=== PATIENT | female | born 1960 | race African-American/Black ===

== ENCOUNTER 2016-07-01 04:59 | Day surgery (SDC) | payer OTHER ==
[2016-06-26 15:08] VITALS: BMI 23.9
[2016-07-01] MEDS ORDERED: LIDOCAINE HCL 2% (20ML MULTI-DOSE VIAL) NR ONE (09:07)
[2016-07-01] MEDS ORDERED: DESFLURANE GAS 240 ML BOTTLE IH ONE (09:07)
[2016-07-01] MEDS ORDERED: DEXAMETHASONE SOD PHOSPHATE 4 MG/1 ML VIAL ONE (09:22)
[2016-07-01] MEDS ORDERED: ceFAZolin SODIUM 1 GM VIAL ONE (09:22)
[2016-07-01] MEDS ORDERED: PROPOFOL 20 ML ONE (09:22)
[2016-07-01] MEDS ORDERED: KETOROLAC TROMETHAMINE 30 MG/1 ML VIAL ONE (09:22)
[2016-07-01] MEDS ORDERED: SODIUM CHLORIDE 0.9% P/F 10 ML VIAL IJ ONE (09:22)
[2016-07-01] MEDS ORDERED: MIDAZOLAM HCL 2 MG/2 ML SINGLE DOSE VIAL ONE (09:23)
[2016-07-01] MEDS ORDERED: ROCURONIUM BROMIDE 50 MG/5 ML VIAL ONE (09:23)
[2016-07-01] MEDS ORDERED: BUPIVACAINE HCL/PF 0.5% (5MG/ML) 10 ML VIAL ONE (09:25)
[2016-07-01] MEDS ORDERED: IBUPROFEN 800 MG/8 ML IJ IVPB PRN (10:06)
--- NOTE | 2016-07-01 10:06 | HP ---
History & Physical Update - History History: No Change - Physical Physical: No Change - Assessment Assessment: No Change - Plan Plan: No Change
[2016-07-01] MEDS ORDERED: ceFAZolin SODIUM 1 GM VIAL IVPB ONE (10:12)
[2016-07-01] MEDS ORDERED: GLYCOPYRROLATE 0.2 MG/1 ML VIAL ONE (11:45)
[2016-07-01] MEDS ORDERED: NEOSTIGMINE METHYLSULFATE 0.5 MG/ML - 10 ML MDV ONE (11:46)
[2016-07-01] MEDS ORDERED: BUPIVACAINE HCL/PF 0.5% (5MG/ML) 10 ML VIAL IJ ONE (11:55)
[2016-07-01] MEDS ORDERED: ONDANSETRON 4 MG/2 ML VIAL IVPUSH PRN (12:30)
[2016-07-01] MEDS ORDERED: HYDROmorphone HCL CARPU-JECT 2 MG/1 ML DISP.SYRIN ONE (13:11)
[2016-07-01] MEDS: HYDROmorphone HCL CARPU-JECT 1 MG/1 ML DISP.SYRIN IVPUSH PRN ×2 (13:13→14:00)
[2016-07-01] MEDS: LACTATED RINGERS SOLUTION 1,000 ML IV SCH ×2 (14:45→17:46)
[2016-07-01] MEDS ORDERED: CEFAZOLIN 1 GM/D5W 50 ML IVPB SCH (15:00)
--- NOTE | 2016-07-01 15:09 | OP ---
Operative Note - Note: Operative Date: 07/01/16 Pre-Operative Diagnosis: Leiomyomatous Uterus. Intramural myoma. subserosal myoma. abdominal pain Operation: Total Robotic Laparoscopic hysterectomy Findings: LeiomyomatoUS uTERUS 14 cm normal fallopian tube Post-Operative Diagnosis: Same as Pre-op Surgeon: Hillary Benito Physics Technical Officer: Magdalena Sorensen Anesthesia: General Estimated Blood Loss (mls): 20 Operative Report Dictated: Yes
[2016-07-01] MEDS: CEFAZOLIN (PRE-DOCKED) 50 ML IVPB SCH ×2 (15:54→21:00)
[2016-07-01] MEDS: KETOROLAC TROMETHAMINE 10 MG TABLET PO SCH ×2 (17:24→18:30)
[2016-07-01] MEDS: HYDROmorphone HCL CARPU-JECT 1 MG/1 ML DISP.SYRIN IVPB PRN ×2 (17:46→21:37)
[2016-07-01 18:20] LABS: MCH 28.7 pg (25.7-33.7); MEAN PLT VOLUME 7.7 fl (7.5-11.1); PLATELET COUNT 259 K/MM3 (134-434); RDW 14.2 % (11.6-15.6); WHITE BLOOD COUNT 18.2 K/mm3 (4.0-10.0)
--- NOTE | 2016-07-01 20:24 | OP ---
DATE OF OPERATION: 06/30/2016 PREOPERATIVE DIAGNOSES: Leiomyomatous uterus, submucous myoma, and intramural myoma and abdominal pain. OPERATION: Total laparoscopic robotic hysterectomy, and bilateral salpingectomy. POSTOPERATIVE DIAGNOSES: Leiomyomatous uterus, submucous myoma, and intramural myoma and abdominal pain. SURGEON: Danny Nguyen MD NEEDLEWORKER: Magdalena Sorensen MD ANESTHESIA: General. PROCEDURE: The patient was taken to the operating room, placed in dorsal lithotomy position, prepped and draped in the usual sterile fashion. A time-out was performed in accordance with hospital regulation. Speculum was placed in the vagina, anterior lip of the cervix grasped with single-tooth tenaculum. Cervix then dilated to accommodate the uterine VCare manipulator. VCare manipulator was then inserted and cervix was covered. Sheffield catheter was then inserted into the bladder. Attention was then drawn to the umbilicus, where an 8 mm umbilical incision was then made. The Veress needle was inserted into the cavity. Approximately 3 to 4 L of CO2 was insufflated in the cavity. Veress needle was then removed and 8-mm trocar was inserted. Laparoscope and camera was then attached. Visualization revealed a leiomyomatous uterus with multiple myomas, submucous myomas mostly noted. Tubes and ovaries noted to be within normal limits. Two trocar incisions were made on the left side, 1 parallel to the umbilical on the left and then upper left. The 5-mm incision was made and a AirSeal cannula was inserted under direct visualization with laparoscopic camera. On the right side, 2 parallel incisions were made, 1 in the lower aspect closer to the sidewall and one 8 mm away from the umbilical incision. Trocars were then inserted under direct visualization. The da Barrington robot was then side docked to the patient's bedside. Trocars were then inserted onto the robot and placement of instruments was then done. The vessel sealer was placed on the left, tenaculum and Endo Sylwia were placed on the right under direct visualization. Instruments were then inserted. The tenaculum was then used to move the uterus to the right, and round ligaments and uteroovarian ligaments identified, clamped and cut using vessel sealer. The uterine arteries were identified and clamped and cut. Vesicouterine reflection was then entered and the bladder was bluntly dissected out of the operative field. The cardinal ligament identified and clamped and cut using vessel sealer. The uterus was then moved to the left side. In the right side, the same procedure was done. The uteroovarian ligaments identified and clamped and cut. Uterine arteries identified and clamped and cut. Cardinal ligament was identified, clamped and cut. Endo Sylwia were then used to cut the vagina away from the cervix. After the cervix had been cleared from the vagina, the uterus was then removed with the tubes. The tubes were bilaterally clamped and removed using vessel sealer and removed through the vagina. An 0 V-Loc suture was then passed through the vagina. Robot was used with the needle etienne to grasp with the needle and continuous suturing was done with the V-Loc suture on the vagina, vaginal cuff, and oversewn to the midline. Closure of the vaginal cuff was confirmed and ureters identified bilaterally and found to have peristalsis. Hemostasis was achieved. Ovaries were still intact and found to be normal. During the procedure, some enterolysis was performed. On the left side, the bowel was attached to the left ovary and tube, and on the right side, bowel was attached to the uterus, which was removed prior to removal of the uterus. Hemostasis was achieved. Estimated blood loss 20 mL. All instruments were then removed. CO2 was removed from the abdomen. Incisions were then closed using 4-0 Biosyn in subcuticular fashion. The wound was washed and dressed. Patient tolerated procedure well, was taken to recovery room in stable condition. DANNY NGUYEN M.D. [id number]
[2016-07-01] MEDS ORDERED: ONDANSETRON 4 MG/2 ML VIAL IVPB PRN (20:53)
[2016-07-02] MEDS: KETOROLAC TROMETHAMINE 10 MG TABLET PO SCH ×2 (00:07→05:56)
[2016-07-02] MEDS: CEFAZOLIN (PRE-DOCKED) 50 ML IVPB SCH ×2 (02:47→09:41)
[2016-07-02 07:27] LABS: MCH 28.6 pg (25.7-33.7); MCHC 32.5 g/dl (32.0-36.0); MEAN CELL VOLUME 87.9 fl (80-96); MEAN PLT VOLUME 7.8 fl (7.5-11.1); PLATELET COUNT 215 K/MM3 (134-434); RDW 14.4 % (11.6-15.6)
--- NOTE | 2016-07-02 08:45 | PN ---
Progress Note (short form) - Note Progress Note: Post op day#1.S/P Robotic and laproscopic PATRICIA with bilateral salpingectomy under GA uneventful.Patient stable.No any anesthesia related problem.Patient DC from the anesthesia care.
--- NOTE | 2016-07-02 09:35 | PN ---
Progress Note, Physician Chief Complaint: Pt seen/evaluated and doing well. Ambulating, tolerating clears and crackers. No n/v. Passing flatus. Hasn't had regular diet yet but denies n/v. No VB. No CP/SOB/F/C/NUÑEZ or any other complaints. - Current Medication List Current Medications: Active Medications Enoxaparin Sodium (Lovenox -) 40 mg SQ DAILY SANA Fentanyl (Sublimaze Injection -) 50 mcg IVPUSH [id number] PRN PRN Reason: PAIN Stop: 07/04/16 12:31 Last Admin: 07/01/16 12:45 Dose: 50 mcg Hydromorphone HCl (Dilaudid Injection -) 1 mg IVPUSH [id number] PRN PRN Reason: PAIN Stop: 07/04/16 12:31 Last Admin: 07/01/16 14:00 Dose: 1 mg Hydromorphone HCl (Dilaudid Injection -) 1 mg IVPB Q4H PRN PRN Reason: PAIN Stop: 07/02/16 14:59 Last Admin: 07/01/16 21:37 Dose: 1 mg Lactated Ringer's (Lactated Ringers Solution) 1,000 mls @ 125 mls/hr IV ASDIR SANA Last Admin: 07/01/16 17:46 Dose: 125 mls/hr Cefazolin Sodium (Ancef 1gm Ivpb (Pre-Docked)) 50 mls @ 100 mls/hr IVPB Q6H-IV SANA Stop: 07/02/16 15:44 Last Admin: 07/02/16 02:47 Dose: 100 mls/hr Ibuprofen (Caldolor Injection -) 800 mg IVPB Q6H PRN PRN Reason: FEVER Ketorolac Tromethamine (Toradol) 10 mg PO Q6HPO SANA Stop: 07/06/16 11:59 Last Admin: 07/02/16 05:56 Dose: 10 mg Ondansetron HCl (Zofran Injection) 4 mg IVPB Q6H PRN PRN Reason: NAUSEA Stop: 07/02/16 14:54 Last Admin: 07/01/16 21:00 Dose: 4 mg - Objective Vital Signs: Vital Signs Temperature 98.7 F 07/02/16 05:56 Pulse Rate 69 07/02/16 05:56 Respiratory Rate 20 07/02/16 05:56 Blood Pressure 111/55 07/02/16 05:56 O2 Sat by Pulse Oximetry (%) 98 07/01/16 21:00 Constitutional: Yes: Well Nourished, No Distress, Calm Eyes: Yes: Conjunctiva Clear, EOM Intact HENT: Yes: Atraumatic, Normocephalic Neck: Yes: Supple, Trachea Midline Cardiovascular: Yes: Regular Rate and Rhythm Respiratory: Yes: Regular, CTA Bilaterally Gastrointestinal: Yes: Normal Bowel Sounds, Soft Wound/Incision: Yes: Clean/Dry, Well Approximated, Dressing Dry and Intact Neurological: Yes: Alert, Oriented Psychiatric: Yes: Alert, Oriented Labs: CBC, BMP 07/02/16 06:35 Problem List - Problems (1) S/P laparoscopic hysterectomy Code(s): Z90.710 - ACQUIRED ABSENCE OF BOTH CERVIX AND UTERUS Assessment/Plan 55 y/o POD #1 s/p laparoscopic robotic hysterectomy - AFVSS - Hgb 11.7, stable - regular diet - po pain meds -await void - likely discharge home today
--- NOTE | 2016-07-02 09:37 | DS ---
Physical Examination Vital Signs: Vital Signs Temperature 98.7 F 07/02/16 05:56 Pulse Rate 69 07/02/16 05:56 Respiratory Rate 20 07/02/16 05:56 Blood Pressure 111/55 07/02/16 05:56 O2 Sat by Pulse Oximetry (%) 98 07/01/16 21:00 Labs: CBC, BMP 07/02/16 06:35 Discharge Summary Reason For Visit: SUBSEROSAL LEIOMYOMA Current Active Problems S/P laparoscopic hysterectomy (Acute) Procedures: Principal: robotic total laparoscopic hysterecotmy, bilateral salpingectomy Hospital Course: Patient admitted 07/01/16 for robotic hysterectomy for fibroids and underwent uncomplicated procedure. Please see operative report for full details. Patient met all pots op milestones, was voiding, passing flatus and tolerating diet. Pt was discharged home in stable condition on post op day 1. Condition: Good - Instructions Diet, Activity, Other Instructions: Dr. Hillary Benito Bromination Equipment Operator discharge instructions Physical activity Resume your normal everyday activity as tolerated no heavy lifting or exercise until seen by your surgeon. You may walk unlimited wilmar of and climb stairs. You may resume driving the car when you feel safe and comfortable behind the wheel. No sexual activity as instructed by Dr. Benito. Wound care If you have a bandage, leave it on, and keep dry for 48-72 hours. After that time discard the outer bandage. If they are tapes on the skin under the out of bandage leave them in place. They will peel off in the next 7 to 10 days. Do Not Peel them off. You may shower the day after surgery. If there are tapes present on the skin, you may shower over them. Diet There are no dietary restrictions. Eat healthy, high-fiber foods. Drink 6 to 8 glasses of liquid each day. This will assist in keeping your bowels are regular. Pain management You may take Tylenol or acetaminophen or Ibuprofen (for example, Motrin, Advil etc.) from my pain prescription medication is ordered should be taken as prescribed for moderate to severe pain. Call Dr. Benito for any of the following: Severe pain not relieved by medication Fever of 101 or higher Excessive bleeding or drainage on dressing Inability to urinate Call the office at [phone] for an appointment in 14 days. Referrals: Hillary Benito MD [Staff Physician] - 2 Weeks (please call to make appointment) Disposition: HOME - Home Medications Comprehensive Discharge Medication List: Ambulatory Orders Lactobacillus Acidophilus [Probiotic Acidophilus] 1 each PO DAILY 06/26/16 Thyroid [[employer] Thyroid] 15 mg PO DAILY 06/26/16 Ibuprofen [Motrin -] 800 mg PO PRN PRN 07/01/16 Hydromorphone HCl [Dilaudid] 2 mg PO Q4H #30 tablet MDD 6 07/02/16 Ibuprofen [Motrin -] 600 mg PO QID PRN #28 tablet 07/02/16
[2016-07-02] MEDS ORDERED: ENOXAPARIN NA (PORCINE) 40 MG/0.4 ML DISP.SYRIN SQ SCH (10:00)
[2016-07-02 11:38] VITALS: BP 120/68; PULSE 70; TEMP 98.6
--- NOTE | 2016-07-02 13:48 | PATH ---
Surgical Pathology Report Patient Name: RADHA CONTI [facility]. Rec. #: [id number] /Age/Gender: 1960 (Age: 55) / F Account: [id number] Location: AMBULATORY SURG Taken: 07/01/2016 Received: 07/01/2016 Reported: 07/02/2016 Physicians: Hillary Benito M.D. Specimen(s) Received A: UTERUS AND CERVIX B: RIGHT FALLOPIAN TUBE C: LEFT FALLOPIAN TUBE Clinical History Subserosal leiomyoma Final Diagnosis A. UTERUS AND CERVIX, TOTAL ABDOMINAL HYSTERECTOMY: CERVIX: CHRONIC CERVICITIS, SQUAMOUS METAPLASIA. ENDOMETRIUM: INACTIVE. MYOMETRIUM: LEIOMYOMATA (LARGEST 4.0 CM). UTERINE SEROSA: WITHOUT SIGNIFICANT PATHOLOGIC CHANGES. B. FALLOPIAN TUBE, RIGHT, SALPINGECTOMY: BENIGN FALLOPIAN TUBE WITH SMALL PARATUBAL CYST. C. FALLOPIAN TUBE, LEFT, SALPINGECTOMY: BENIGN FALLOPIAN TUBE WITH SMALL PARATUBAL CYSTS. Electronically Signed Kimo Felix M.D. Gross Description A. Received in formalin, labeled "uterus and cervix" is a 251 g uterus with an attached cervix and no attached adnexa. The specimen measures 11 cm from superior to inferior, 7.4 cm from left to right and 7.0 cm from anterior to posterior. The serosa is pink-parkinson with focal bulging subserosal nodules. The attached cervix measures 2.7 cm in length and averages 2.7 cm in diameter. The ectocervix is pink-parkinson, smooth and glistening. The endocervix is unremarkable. The endometrial cavity measures 4.3 cm in length and 2.5 cm from cornu to cornu. The endometrium is red and averages 0.1 cm in thickness. The myometrium displays abundant intramural nodules, measuring up to 4.0 cm in greatest dimension. The cut surface of the subserosal and intramural nodules displays parkinson, firm to rubbery parenchyma with whorled texture. No areas of hemorrhage or necrosis are identified. The remaining myometrium is pink-parkinson and averages 3.2 cm in thickness. Water/Wastewater Project Engineer sections are submitted in 11 cassettes as follows: 1-anterior cervix; 2-posterior cervix; 9-3-lsnsjaeb endomyometrium; 3-1-zhotojbfg endomyometrium; 2-6-jnesvgqofi nodules; 8-35-avwljpktxk nodules. The B. Received in formalin, labeled "right fallopian tube" is a 2.5 cm in length fimbriated fallopian tube. The outer surface is pink-parkinson and smooth. Sectioning reveals a pinpoint lumen. Water/Wastewater Project Engineer sections are submitted in 2 cassettes as follows: 1-fimbria; 3-hjoup-xladeoac of fallopian tube. C. Received in formalin, labeled "left fallopian tube" is a 3.5 cm in length fimbriated portion of fallopian tube. The outer surface is pink-parkinson and smooth. Sectioning reveals a pinpoint lumen. Water/Wastewater Project Engineer sections are submitted in 2 cassettes as follows: 1-fimbria; 2-cross sections of fallopian tube. 07/01/201607/01/2016
== END 2016-07-02 11:52 | disposition home or self-care (01) ==
LOC: JASUSAT 04:59 → J6S 15:00 → JASUSAT 07-02 11:52
PROVIDERS: ATTEND Obstetrics & Gynecology
PROC: 0UT74ZZ Resection of Bilateral Fallopian Tubes, Percutaneous Endoscopic Approach (ICD-10-PCS; 2016-07-01)
PROC: 8E0W4CZ Robotic Assisted Procedure of Trunk Region, Percutaneous Endoscopic Approach (ICD-10-PCS; 2016-07-01)
PROC: 0UT94ZZ Resection of Uterus, Percutaneous Endoscopic Approach (ICD-10-PCS; principal; 2016-07-01 10:00)
PROC: 0UTC4ZZ Resection of Cervix, Percutaneous Endoscopic Approach (ICD-10-PCS; 2016-07-01 10:00)
DX: D25.0 Submucous leiomyoma of uterus (principal); D25.1 Intramural leiomyoma of uterus
CPT/HCPCS: 58573; S2900; 36415; 84703; 85027; 88305-TC; 88307-TC; 94010; 94760

== ENCOUNTER 2017-01-29 09:24 | Emergency (ER) | payer OTHER ==
[2017-01-29 09:29] VITALS: BP 151/92; PULSE 91; TEMP 98; BMI 22.8
[2017-01-29] MEDS ORDERED: KETOROLAC TROMETHAMINE 60 MG/2 ML VIAL IM ONE (09:56)
[2017-01-29] MEDS ORDERED: predniSONE 20 MG TABLET (UD) PO ONE (09:56)
[2017-01-29] MEDS ORDERED: predniSONE 20 MG TABLET (UD) ONE (09:57)
[2017-01-29] MEDS ORDERED: KETOROLAC TROMETHAMINE 60 MG/2 ML VIAL ONE (09:57)
--- NOTE | 2017-01-29 10:02 | PDOC ---
History of Present Illness - General Chief Complaint: Pain Stated Complaint: LT SHOULDER PAIN Time Seen by Provider: 01/29/17 09:54 History Source: Patient Exam Limitations: No Limitations - History of Present Illness Initial Comments: 01/29/17 09:56 Occurred: reports: other (3) Severity: reports: moderate, severe Pain Location: reports: upper extremity (left shoulder ) Method of Injury: Yes: other (heavy lifting) Modifying Factors: improves with: cold therapy, pain medication Associated Symptoms (Fall): denies symptoms Past History - Travel Traveled outside of the country in the last 30 days: No Close contact w/someone who was outside of country & ill: No - Past Medical History Allergies/Adverse Reactions: Allergies Allergy/AdvReac Type Severity Reaction Status Date / Time codeine [Codeine] Allergy vomiting, Verified 01/29/17 09:29 lip tingling, swelling niacin Allergy vomiting, Verified 01/29/17 09:29 palpitations, swelling, lips tingling promethazine Allergy "HALLUCINAT Verified 01/29/17 09:29 IONS" meperidine HCl [From Demerol] AdvReac Vomiting Verified 01/29/17 09:29 Home Medications: Ambulatory Orders Diazepam [Valium] 5 mg PO Q8H #6 tablet MDD 3 01/29/17 Thyroid Disease: Yes (hypo) - Immunization History Immunization Up to Date: Yes - Suicide/Smoking/Psychosocial Hx Smoking Status: Yes Smoking History: Current every day smoker Have you smoked in the past 12 months: Yes Number of Cigarettes Smoked Daily: 10 Information on smoking cessation initiated: Yes 'Breaking Loose' booklet given: 01/29/17 Hx Alcohol Use: Yes (SOCIAL) Drug/Substance Use Hx: No Hx Substance Use Treatment: No Trauma Specific PMHX - Complaint Specific PMHX Back Injury: No Neck Injury: No Review of Systems - Review of Systems Able to Perform ROS?: Yes Is the patient limited Arabic proficient: Yes Constitutional: Yes: Symptoms Reported, See HPI, Loss of Appetite. No: Fever, Malaise HEENTM: Yes: See HPI. No: Symptoms Reported Respiratory: No: Symptoms reported Musculoskeletal: Yes: Symptoms Reported, See HPI, Joint Pain, Joint Swelling, Muscle Pain Neurological: Yes: See HPI. No: Symptoms reported All Other Systems: Reviewed and Negative *Physical Exam - Vital Signs Last Vital Signs Temp Pulse Resp BP Pulse Ox 98.0 F 91 H 20 151/92 100 01/29/17 09:25 01/29/17 09:25 01/29/17 09:25 01/29/17 09:25 01/29/17 09:25 - Physical Exam General Appearance: Yes: Appropriately Dressed, Moderate Distress, Severe Distress (tearful) Neck: positive: Supple, Other (no cspine pain but tight muscle groups. ). negative: Tender Respiratory/Chest: positive: Lungs Clear Gastrointestinal/Abdominal: positive: Soft Extremity: positive: Normal Capillary Refill. negative: Normal Range of Motion (uable to lift /abductor, forward flex past approximately 10 secondary to exquisite pain to left shoulder capsule.) Integumentary: positive: Normal Color, Dry, Warm Progress Note - Progress Note Progress Note: Severe tendinitis, negative EKG negative for arrhythmias or any ischemic changes. We will treat with NSAIDs, prednisone, and given 5 mg Valium tablets for antispasmodic purposes. Encouraged to follow-up with orthopedist this week for possible *DC/Admit/Observation/Transfer Diagnosis at time of Disposition: Shoulder tendonitis Qualifiers: Laterality: left Qualified Code(s): M75.82 - Other shoulder lesions, left shoulder; M75.82 - Other shoulder lesions, left shoulder - Discharge Dispostion Disposition: HOME Condition at time of disposition: Stable Admit: No - Referrals Referrals: Carley Palmer MD [Primary Care Provider] - Manjit Willard MD [Staff Physician] - - Patient Instructions Printed Discharge Instructions: DI for Shoulder Tendinopathy Additional Instructions: Rest, ice to area on and off for 15 minutes 4-6 times a day Avoid heavy lifting or exercise until pain and swelling is resolved or until further directed Keep area highly elevated to reduce swelling Use splints/Jamir wrap as directed Followup with orthopedist in one to 2 days if not improving, if significantly improved may wait one week for followup with orthopedist May use ibuprofen 2-200 mg tablets every 6 hours as needed for pain May use Valium 5mg tab for severe pain and spasm - Post Discharge Activity Forms/Work/School Notes: Back to Work
[2017-01-29] MEDS ORDERED: diazePAM 5 MG TABLET ONE (10:23)
--- NOTE | 2017-01-30 14:19 | EKG ---
Test Reason : Blood Pressure : / mmHG Vent. Rate : 069 BPM Atrial Rate : 069 BPM P-R Int : 110 ms QRS Dur : 066 ms QT Int : 388 ms P-R-T Axes : 084 057 069 degrees QTc Int : 415 ms SINUS RHYTHM WITH SHORT OH LOW VOLTAGE QRS BORDERLINE ECG WHEN COMPARED WITH ECG OF 26-JUN-2016 14:38, CRITERIA FOR SEPTAL INFARCT ARE NO LONGER PRESENT Confirmed by THEODORE GAMEZ, ARASELI ([id number]) on 01/30/2017 2:18:55 PM Referred By: [facility] Confirmed By:ARASELI JAIMES MD
== END 2017-01-29 10:35 | disposition home or self-care (01) ==
LOC: JERFT 09:24
PROC: 3E0233Z Introduction of Anti-inflammatory into Muscle, Percutaneous Approach (ICD-10-PCS; principal; 2017-01-29)
DX: M75.82 Other shoulder lesions, left shoulder (principal)
CPT/HCPCS: 73030-TC-LT; 93005; 93010; 99281-25